=== PATIENT | female | born 1980 | race Caucasian/White ===

== ENCOUNTER 2016-07-13 20:21 | Inpatient (IN) ==
--- NOTE | 2016-07-13 17:02 | Emergency Department Note ---
Fernando Pool Brittany, am scribing for, and in the presence of, Sherry Tijerina DO 16: 37. IBreezy Debra, DO, personally performed the services described in this documentation, ascribed by Sandy King in my presence, and it is both accurate and complete 702 . Arrival - Arrival Chief Complaint: Abdominal / Flank Pain Stated Complaint: nausea and vomiting ED Nursing Triage Note: altaf from [facility] for dx of pancreatitis Dilaudid 2mg IV, 3.375mg Zosyn IV, fentanyl 50mcg and 1 liter of normal saline given BENEFITS SPECIALIST RECRUITER Mode of Arrival: Stretcher Limitations: No Limitations Source: Patient Time Seen by Provider: 07/13/16 16:20 - History of Present Illness HPI Narrative: This is a 35 y/o white female,who presents to the ED by EMS from [facility] for further evaluation of Pancreatitis. It is unclear exactly how when the abd pain started. Pt reports she is an occasional drinker. Per EMS pt was given Dilaudid 2 MG IV, Zosyn 3.375 IV, Fentanyl 50 MCG and 1 Liter of normal saline BENEFITS SPECIALIST RECRUITER. Pt is rocking back and forth and will not completely be still for the exam. After a few minutes pt has taken her IV out and is up walking around. PT has no other complaints/pain in the ED at this time. Pt has a PMHx of pancreatitis. Pt denies a surgical Hx. Pt denies a family medical Hx. Pt denies a social Hx. Onset (ago): unknown Consistency: constant Severity: moderate Date of Last Menstrual Period: 06/20/2016 Allergies/Adverse Reactions: Allergies Allergy/AdvReac Type Severity Reaction Status Date / Time No Known Allergies Allergy Unverified 07/13/16 16:08 Review of System - Review of System 12 point system: reviewed and no additional remarkable complaints except as stated - Review of System Gastrointestinal: Present: abdominal pain Medical,Surgical,& Family Hx - Medical History Gastrointestinal: History of: Pancreatitis Exam Vital Signs: Vital Signs Temperature 98.5 F 07/13/16 16:02 Pulse Rate 104 H 07/13/16 16:02 Respiratory Rate 18 07/13/16 16:02 Blood Pressure 122/83 07/13/16 16:02 O2 Sat by Pulse Oximetry 96 07/13/16 16:02 - General General appearance: alert, in no apparent distress - Head Head exam: Present: atraumatic, normocephalic, normal inspection - Eye Eye exam: Present: normal appearance, PERRL, EOMI - ENT ENT exam: Present: normal exam, normal oropharynx, mucous membranes moist - Neck Neck exam: Present: normal inspection, full ROM, trachea midline. Absent: tenderness, meningismus, lymphadenopathy, thyromegaly - Chest Chest inspection: Present: normal inspection, symmetric chest wall rise. Absent : tenderness, rash, abscess - Respiratory Respiratory exam: Present: normal lung sounds bilaterally. Absent: rales, respiratory distress, rhonchi, stridor, wheezes - Cardiovascular Cardiovascular exam: Present: regular rate, normal rhythm, normal heart sounds. Absent: murmur, rubs, gallop, clicks - Abdominal Exam Abdominal exam: Present: soft, tenderness (Diffuse tenderness but more so to the RUQ. ), normal bowel sounds. Absent: distention, guarding, rebound, rigidity, ascites, mass, bruit, pulsatile mass, hernia - Rectal Exam Rectal exam: Present: deferred - Extremities Exam Extremities exam: Present: normal inspection, full ROM, normal capillary refill. Absent: tenderness, pedal edema, joint swelling, calf tenderness - Back Exam Back exam: Present: normal inspection, full ROM. Absent: tenderness, muscle spasm, rashes - Neurological Exam Neurological exam: Present: alert, oriented X3, CN II-XII intact. Absent: normal gait, motor sensory deficit - Psychiatric Psychiatric exam: Present: normal affect, normal mood. Absent: depressed, agitated, anxious, flat affect, manic - Skin Skin exam: Present: warm, dry, intact, normal color. Absent: rash, cyanosis, diaphoresis, erythema, pallor, mottled Course Course Narrative: dr Darden will take pt to surgery. Results - Labs Lab Results: I have reviewed the patients labs Labs: Laboratory Tests 07/13/16 16:37 Lipase 76.0 - Diagnostic Findings Procedure: CT Abdomen and Pelvis: report reviewed by me (Pneumoperitoneum, suggesting perforated viscus. Consider perofrated gastric ulcer, given the fact that the abdominal fluid is more so on the right upper quadrant, and there is no evidence of pnumoperitoneum in the lower abdomen. ) Disposition Clinical Impression: Perforated viscus Case discussed with: patient, patient's family Disposition: Still a Patient Condition: Guarded Time of Disposition: 19:03
--- NOTE | 2016-07-13 18:33 | CT Report ---
History: Generalized abdominal pain Date: 07/13/2016 Study: CT abdomen and pelvis without contrast Comparison exam: No previous available Critical test result: Verbal report given to Dr. Tijerina by telephone at 6:20 PM Technique: Spiral CT sections were obtained from the lung bases to the pubic symphysis without contrast. The CT exam was performed using one or more of the following dose reduction techniques: Automated exposure control, adjustment of the mA and/or kV according to patient size, or use of iterative reconstruction technique. CT abdomen: The partially visualized lung bases are generally clear. There is evidence of pneumoperitoneum, with a 4.5 cm pocket of air under the right hemidiaphragm anteriorly. There is a moderate amount of free fluid in the upper abdomen, more so perihepatic and right upper quadrant than left upper quadrant. There is prominent distention of the fluid-filled gallbladder. The liver, spleen, adrenal glands, bile ducts, and kidneys are grossly unremarkable in appearance. There is residual IV contrast within the genitourinary tract from a presumed outside earlier CT scan. There is no mckenzie bowel obstruction. There is no aortic aneurysm CT pelvis: There is a moderate amount of free fluid in the pelvis. A copper-T IUD is noted within the uterus. The bladder is moderately distended with IV contrast and is otherwise unremarkable. Impression: Pneumoperitoneum, suggesting perforated viscus. Consider perforated gastric ulcer, given the fact that the abdominal fluid is more so on the right upper quadrant, and there is no evidence of pneumoperitoneum in the lower abdomen. PROCEDURE INTERPRETED AT [facility] DEPARTMENT OF RADIOLOGY Final Report Signed by: Dr. Nell Robles
--- NOTE | 2016-07-13 19:25 | General Surg History&Physical ---
Assessment and Plan (1) Perforated viscus Status: Acute Assessment and plan: This patient has free air and peritonitis. I have recommended robotic assisted diagnostic laparoscopy with repair of perforated viscus but I have also discussed the possibility of laparotomy with the patient and her mother as well as an ostomy. She appears well resuscitated and has received several liters of fluid and Zosyn. We will get a type and screen and take her immediately to the operating room. She did have evidence of urinary tract infection as well on a urinalysis from the outside hospital so we will get a repeat urine and treat this. I have discussed the risks, benefits, and alternatives of the operation with the patient and her mother, and the expected outcomes have been reviewed. They would like to proceed with the operation. Current Visit: Yes History of Present Illness Chief complaint: Abdominal pain History of present illness: Ms. Batista is a 35 year old female with a history of drug use and recent methamphetamine use who presents to the ER with a 3 week history of worsening upper abdominal pain that acutely worsened today. She went to an outside hospital ER and had a CT scan that showed a small amount of pneumoperitoneum. She had a leukocytosis of 15,000 and her urine drug screen showed methamphetamines and marijuana. She was transferred to [place] for management. She has never had any abdominal surgery. She says she has had a EGD in the past that showed some stress ulcers in her stomach that is what she was told. She has been taking a lot of ibuprofen recently. She does smoke tobacco and drink alcohol as well. Allergies Allergy/AdvReac Type Severity Reaction Status Date / Time No Known Allergies Allergy Unverified 07/13/16 16:08 Medical,Surgical,& Family Hx - Medical History Gastrointestinal: History of: Pancreatitis Exam - Constitutional Vitals: Period Temp Pulse Resp BP Sys/Mercado Pulse Ox Last 24 Hr 98.5 F-98.5 F 104-110 18-20 97-122/61-83 96 General appearance: normal weight, no acute distress - Head Head exam: Present: normal inspection, normocephalic - Eye Eye exam: Present: EOMI. Absent: scleral icterus Pupils: Present: CARO - ENT ENT exam: Present: normal exam Mouth exam: Present: normal external inspection, normal voice - Neck Neck exam: Present: normal inspection, trachea midline - Respiratory Respiratory exam: Present: clear to auscultation bilaterally. Absent: accessory muscle use, chest wall tenderness - Cardiovascular Cardiovascular exam: Present: tachycardia. Absent: irregular rhythm, systolic murmur - GI/Abdominal GI/Abdominal exam: Present: guarding, hypoactive bowel sounds, tenderness, rebound, soft. Absent: distended - Extremities Exam Extremities exam: Present: normal inspection, normal capillary refill - Back Exam Back exam: Present: normal inspection - Neurological Exam Neurological exam: Present: alert, oriented X3 Speech: Present: normal - Skin Skin exam: Present: normal color, warm - Constitutional Constitutional: Present: as per HPI - EENT Nose, mouth and throat: Present: as per HPI - Cardiovascular Cardiovascular: Present: as per HPI - Respiratory Respiratory: Present: as per HPI - Gastrointestinal Gastrointestinal: Present: as per HPI - Genitourinary Genitourinary: Present: as per HPI - Musculoskeletal Musculoskeletal: Present: as per HPI - Neurological Neurological: Present: as per HPI - Endocrine Endocrine: Present: as per HPI Hematologic/Lymphatic: Present: as per HPI Results - Diagnostic Findings Procedure: CT Abdomen and Pelvis: image reviewed by me, report reviewed by me ( Pneumoperitoneum)
[2016-07-13] MEDS: LACTATED RINGERS 1,000 ML IV SCH ×3 (20:09→22:59)
[~2016-07-13 20:21] MED LIST: HYDROmorphone 2 MG/1 ML VIAL IV STA; HYDROmorphone 2 MG/1 ML VIAL ONE; MORPHINE 2 MG/1 ML SYRINGE IV STA; MORPHINE 2 MG/1 ML SYRINGE ONE; ONDANSETRON 4 MG/2 ML VIAL IM STA; ONDANSETRON 4 MG/2 ML VIAL IV STA; ONDANSETRON 4 MG/2 ML VIAL ONE; SODIUM CHLORIDE 0.9% 1,000 ML IV STA; cefOXitin 1,000 MG in SODIUM CHLORIDE 0.9% 100 ML IV ONE
[2016-07-13] MEDS ORDERED: TISSUE ADHESIVE 1 EACH APPLICATOR TOP ONE (20:39)
--- NOTE | 2016-07-13 21:32 | Operative Note ---
Date of procedure: 07/13/16 Pre-op diagnosis: Free air with peritonitis Post-op diagnosis: other (Gastric perforation) Procedure: Preoperative diagnoses Free air with peritonitis Postoperative diagnosis Perforated gastric ulcer Procedures performed 1. Robotic assisted diagnostic laparoscopy 2. Robotic assisted laparoscopic repair of gastric ulcer perforation with falciform pedicle patch Findings There is a large amount of succus in the abdomen and some exudative fluid adhesions. All this was suction irrigated until the effluent was clear. There was a 1 cm hole in the stomach. This was repaired primarily with 2-0 PDS sutures. A falciform pedicle was then mobilized and placed over the repair with Lembert 2-0 silk sutures. A drain was placed over the repair and exited through 1 of the trocar sites. Complications None apparent Specimen None Anesthesia GETA Blood loss 10 mL Indications Free air with peritonitis Description of procedure The patient was taken to the operating room and transferred to the operating table in the supine position. Pressure points were padded and SCDs were placed lower extremities. General endotracheal anesthesia was administered. A Christie catheter was placed with clear urine output. The abdomen was prepped chlorhexidine and draped sterilely. Preoperative antibiotics were administered and timeout was performed. An NG tube was placed by anesthesia and placed on low suction with 300 cc of gastric contents. An 8 mm skin incision was made with an 11 blade scalpel. A penetrating towel clip was used to grasp the umbilical stalk. A Veress needle was used to enter the peritoneal cavity confirmed by double click technique. Aspiration was negative. Saline drop test confirmed intraperitoneal location. The initial insufflation pressure was 2 mmHg. The abdomen was insufflated on high flow insufflation to 15 mmHg. The Veress needle was removed and an 8 mm robotic trochars placed. Diagnostic laparoscopy was performed. There is no evidence of Veress needle or trocar injury. There was peritonitis throughout the abdomen and a large amount of exudative fluid as well as succus throughout the upper quadrants of both sides of the abdomen. This appeared most consistent with a gastric perforation. Under direct visualization, 2 additional 8 mm trochars were placed in the upper abdomen bilaterally. The suction inspector hairspring was then used to separate the left lobe of the liver from the stomach and a 1 cm full-thickness gastric perforation was seen. There is no evidence of malignancy. An additional assistant terminal manager trocar 12 mm in size was placed in the left lateral abdominal wall. The robot was then docked. The defect in the stomach was closed with a primary closure using 2-0 PDS sutures. The falciform ligament was then mobilized with electrocautery and a pedicle was created to have good blood supply. 2-0 silk sutures were then used with a Lembert type suture placed on both sides of the primary closure and these were then sewn down over the falciform pedicle which was placed underneath a Lembert sutures. This served as a buttress over the repair. It was secured in place with a 2-0 silk sutures. The abdomen was again suction irrigated until the effluent was clear and the robot was undocked. A #10 MEGHAN drain was placed over the repair and exited through 1 of the robotic trocar sites. It was sewn in with a 3-0 nylon suture. The MEGHAN drain was hooked up to bulb suction and the CO2 was released from the abdomen and the trochars were removed. The patient was awakened from anesthesia after Christie catheter was removed. The skin incisions were closed with 4-0 Monocryl and sterile skin glue. The patient was awakened from anesthesia and transferred to recovery. Postoperative plan Continue NG tube to low intermittent wall suction Monitor MEGHAN drain output N.p.o. H. pylori treatment with twice daily PPI Implants: #10 MEGHAN drain Anesthesia: WONA Surgeon / Physician: Guillermo Darden Estimated blood loss: minimal Specimens: none sent Condition: stable Disposition: PACU
[2016-07-13] MEDS ORDERED: ONDANSETRON 4 MG/2 ML VIAL IV PRN ×2 (21:38→22:25)
[2016-07-13] MEDS ORDERED: ONDANSETRON 4 MG/2 ML VIAL ONE ×2 (21:48→21:51)
[2016-07-13] MEDS ORDERED: HYDROmorphone 2 MG/1 ML VIAL ONE (21:48)
[2016-07-13] MEDS: HYDROmorphone 2 MG/1 ML VIAL IV PRN ×2 (21:50→21:55)
[2016-07-13] MEDS ORDERED: PROPOFOL 200 MG/20 ML VIAL IV ONE (21:50)
[2016-07-13] MEDS ORDERED: ACETAMINOPHEN 1,000 MG/100 ML VIAL IV ONE (21:51)
[2016-07-13] MEDS ORDERED: SEVOFLURANE 1 UNIT/15 MINUTE INH ONE (21:51)
[2016-07-13] MEDS ORDERED: KETOROLAC 30 MG/1 ML VIAL ONE (21:51)
[2016-07-13] MEDS ORDERED: GLYCOPYRROLATE 0.4 MG/2 ML VIAL ONE (21:51)
[2016-07-13] MEDS ORDERED: MIDAZOLAM 2 MG/2 ML VIAL ONE (21:51)
[2016-07-13] MEDS ORDERED: NEOSTIGMINE 10 MG/10 ML VIAL ONE (21:51)
[2016-07-13] MEDS ORDERED: LACTATED RINGERS 1,000 ML IV ONE (21:52)
[2016-07-13] MEDS ORDERED: ROCURONIUM 100 MG/10 ML VIAL IV ONE (21:52)
--- NOTE | 2016-07-13 21:59 | Anesthesia Post-Op ---
Anesthesia Post OP - Post Ansesthetic Evaluation Patient seen in post op: Yes Resp: within normal limits CV: within normal limits Mental: within normal limits Temp: within normal limits [id number]-Pt-[id number]: within normal limits Nausea and Vomiting: within normal limits Pain: within normal limits
[2016-07-13] MEDS ORDERED: PROMETHAZINE 25 MG/1 ML VIAL IM PRN (22:25)
[2016-07-13] MEDS ORDERED: NALOXONE 0.4 MG/ML VIAL IV PRN (22:25)
--- NOTE | 2016-07-13 23:10 | XRay Report ---
History: Postop abdominal surgery. Nasogastric tube placement Date: 07/13/2016 at 10:42 PM Study: Chest x-ray AP portable Comparison exam: No previous The nasogastric tube is positioned with its tip overlying the distal stomach body level. Surgical drain overlies the upper abdomen. The lungs are generally clear. There is no gross pleural effusion. Osseous structures are generally unremarkable. Impression: The nasogastric tube is well positioned. Surgical drain over the right upper abdomen PROCEDURE INTERPRETED AT [facility] DEPARTMENT OF RADIOLOGY Final Report Signed by: Dr. Nell Robles
[2016-07-13] MEDS: HYDROmorphone PCA 30 MG/30 ML SYRINGE IV SCH (23:13)
[2016-07-13] MEDS: PANTOPRAZOLE 40 MG VIAL IV SCH (23:20)
[2016-07-13] MEDS: PIPERACILLIN/TAZOBACTAM 3,375 MG in SODIUM CHLORIDE 0.9% 100 ML IV SCH (23:51)
[2016-07-14 04:31] LABS: Basophils % 0.1 % (0.0-0.8); Eosinophils % 0.1 % (0.00-10.9); Hematocrit 31.7 VOL% (35.7-47.0); Hemoglobin 10.6 GM/DL (12.0-16.0); Immature Granulocytes % 0.4 %; Immature Granulocytes Absolute 0.09 #; Lymphocytes # 1.2 10*3/uL (1.4-4.0); Lymphocytes % 5.8 % (21.3-54.2); Mean Corpuscular HGB Conc 33.4 GM/DL (32-36); Mean Corpuscular Hemoglobin 31 PG (27-34); Mean Corpuscular Volume 91.4 FL (87-102); Mean Platelet Volume 9.9 FL (9.6-12.0); Monocytes # 0.8 10*3/uL (0.11-0.8); Monocytes % 4.2 % (1.7-12.7); Neutrophils # 18.1 10*3/uL (1.4-7.4); Neutrophils % 89.4 % (38.7-73.9); Platelet Count 296 T/CUMM (130-400); Red Blood Count 3.47 MC/CUMM (3.8-5.5); Red Cell Distribution Width 12.4 % (9.3-17.3); White Blood Count 20.2 T/CUMM (4-12)
[2016-07-14 04:55] LABS: Band Neutrophils 8 % (0-10); Lymphocytes 5 % (20-55); Platelet Estimate Adequate; Segmented Neutrophils 84 % (50-85); Total Cells Counted 100
[2016-07-14 04:56] LABS: Hypochromasia 1+; Ovalocytes Slight
[2016-07-14 05:01] LABS: Osmolality,Calculated 277.3 MOS/KG (273-304); Potassium 4.1 MMOL/L (3.5-5.1)
[2016-07-14] MEDS: LACTATED RINGERS 1,000 ML IV SCH ×2 (07:09→15:51)
[2016-07-14] MEDS: VANCOMYCIN INJ 1,000 MG in SODIUM CHLORIDE 0.9% 250 ML IV SCH ×2 (08:28→17:41)
--- NOTE | 2016-07-14 10:04 | Event Note ---
General Surgery Progress Note Chief complaint This patient is a 35-year-old woman with a history of methamphetamine use who was admitted to the hospital with a perforated gastric ulcer treated with robotic assisted laparoscopic primary repair of gastric perforation with falciform pedicle flap on 07/14/2013 Interval history The patient had a good night last night. She has fair amount of output from her MEGHAN drain and NG tube but her pain is much better today. Her urine output is adequate. Vital signs have stabilized. White blood cell count did go up to 20,000. She is on a twice daily IV PPI and vancomycin and Zosyn. Physical exam Afebrile with normal vital signs Abdominal exam is benign with expected postoperative tenderness. MEGHAN drain still has some yellow colored fluid coming out of it but the output is decreased. Incisions are clean and dry. Labs Reviewed, as above Imaging Chest x-ray shows good placement of NG tube Assessment and plan Continue vancomycin and Zosyn Repeat labs tomorrow Continue NG tube to low intermittent wall suction and MEGHAN drain. The patient will be given ice chips and sips of water for comfort Start ambulating in the hallway Continue SCDs and Lovenox for DVT chemoprophylaxis
[2016-07-14] MEDS: PANTOPRAZOLE 40 MG VIAL IV SCH ×2 (11:40→19:59)
[2016-07-14] MEDS ORDERED: diphenhydrAMINE 50 MG/1 ML VIAL IV PRN (12:46)
[2016-07-14] MEDS: PIPERACILLIN/TAZOBACTAM 3,375 MG in SODIUM CHLORIDE 0.9% 100 ML IV SCH ×3 (13:36→19:59)
[2016-07-14] MEDS: ENOXAPARIN 40 MG/0.4 ML SYRINGE SUBCUT SCH (17:41)
[2016-07-15] MEDS: HYDROmorphone PCA 30 MG/30 ML SYRINGE IV SCH (00:34)
[2016-07-15] MEDS: LACTATED RINGERS 1,000 ML IV SCH ×4 (00:34→22:18)
[2016-07-15] MEDS: VANCOMYCIN INJ 1,000 MG in SODIUM CHLORIDE 0.9% 250 ML IV SCH (00:44)
[2016-07-15] MEDS: PIPERACILLIN/TAZOBACTAM 3,375 MG in SODIUM CHLORIDE 0.9% 100 ML IV SCH (03:29)
[2016-07-15 04:17] LABS: Basophils % 0.2 % (0.0-0.8); Eosinophils # 0.4 10*3/uL (0.0-0.87); Eosinophils % 1.8 % (0.00-10.9); Hematocrit 34.7 VOL% (35.7-47.0); Hemoglobin 11.3 GM/DL (12.0-16.0); Immature Granulocytes % 0.9 %; Immature Granulocytes Absolute 0.18 #; Lymphocytes # 1.3 10*3/uL (1.4-4.0); Lymphocytes % 6.3 % (21.3-54.2); Mean Corpuscular HGB Conc 32.6 GM/DL (32-36); Mean Corpuscular Hemoglobin 31 PG (27-34); Mean Corpuscular Volume 93.8 FL (87-102); Mean Platelet Volume 9.9 FL (9.6-12.0); Monocytes # 1.4 10*3/uL (0.11-0.8); Monocytes % 6.8 % (1.7-12.7); Neutrophils # 16.8 10*3/uL (1.4-7.4); Platelet Count 269 T/CUMM (130-400); Red Cell Distribution Width 12.5 % (9.3-17.3)
[2016-07-15 04:35] LABS: Calcium 8.6 MG/DL (8.5-10.1); Osmolality,Calculated 277.4 MOS/KG (273-304); Potassium 4.6 MMOL/L (3.5-5.1)
[2016-07-15 04:47] LABS: Hypochromasia Slight; Ovalocytes Slight; Platelet Estimate Adequate
--- NOTE | 2016-07-15 07:02 | Physician Query Form ---
CLICK EDIT DOCUMENT TO SELECT QUERY ANSWER --> OK --> SIGN Kirsten Baum RN, CCDS Certified Clinical Loader W) [phone] (f) [phone] [email or web address] PROVIDERS: Make your selection(s) from the choices in EACH section by typing an "x" and enter comments in the comment section. Please use your independent medical judgment in providing your response. This request does not imply that any particular answer is desired or expected. CLINICAL INDICATORS: (Providers should not edit this section) The medical record indicates that the patient was admitted with a perforated gastric ulcer. In your clinical opinion can you please clarify the acuity of the ulcer? Clarify which of the following accurately represents the acuity of the above diagnosis. (x) Acute ( ) Acute on chronic ( ) Chronic stable condition ( ) Remission ( ) Other, please specify: ( ) Clinically unable to determine COMMENTS: Use of terms such as suspected, likely, or probable (associated with a specific diagnosis that is being evaluated, monitored, or treated as if it exists) are acceptable and can be restated in the discharge summary if not ruled out. [facility]
--- NOTE | 2016-07-15 07:56 | Event Note ---
General Surgery Progress Note Chief complaint This patient is a 35-year-old woman with a history of methamphetamine use who was admitted to the hospital with a perforated gastric ulcer treated with robotic assisted laparoscopic primary repair of gastric perforation with falciform pedicle flap on 07/14/2013 Interval history The patient had a good night last night. She is stable today and her labs are fairly stable with a white blood cell count still 20,000. Hemoglobin stable. Creatinine is normal. Patient feels hungry. Physical exam Afebrile with normal vital signs Abdominal exam is benign with expected postoperative tenderness. MEGHAN drain is serous Labs Reviewed, as above Imaging None new Assessment and plan Discontinue IV antibiotics Start triple therapy with twice daily PPI, amoxicillin, clarithromycin Continue MEGHAN drain Allow sips of water and ice chips today and medications We will start liquid diet tomorrow and possible discharge home tomorrow Repeat labs tomorrow
[2016-07-15] MEDS ORDERED: HYDROmorphone 2 MG/1 ML VIAL IV PRN (10:15)
[2016-07-15] MEDS: CLARITHROMYCIN 500 MG TABLET PO SCH ×2 (14:45→21:58)
[2016-07-15] MEDS: AMOXICILLIN 500 MG CAPSULE PO SCH ×2 (14:45→21:58)
[2016-07-15] MEDS: PANTOPRAZOLE 40 MG TABLET PO SCH ×2 (14:46→21:58)
[2016-07-15] MEDS ORDERED: SODIUM CHLORIDE 0.9% 500 ML IV ONE (15:27)
[2016-07-15] MEDS ORDERED: DEXTROSE 5% NACL 0.45% 1,000 ML IV SCH (15:30)
[2016-07-15] MEDS: ENOXAPARIN 40 MG/0.4 ML SYRINGE SUBCUT SCH (20:12)
[2016-07-16 04:36] LABS: Basophils % 0.2 % (0.0-0.8); Eosinophils # 0.4 10*3/uL (0.0-0.87); Eosinophils % 3.3 % (0.00-10.9); Hemoglobin 10.2 GM/DL (12.0-16.0); Immature Granulocytes % 0.7 %; Immature Granulocytes Absolute 0.08 #; Lymphocytes # 0.9 10*3/uL (1.4-4.0); Lymphocytes % 7.3 % (21.3-54.2); Mean Corpuscular HGB Conc 32.9 GM/DL (32-36); Mean Corpuscular Hemoglobin 30 PG (27-34); Mean Corpuscular Volume 91.4 FL (87-102); Mean Platelet Volume 10.1 FL (9.6-12.0); Monocytes # 0.9 10*3/uL (0.11-0.8); Monocytes % 7.5 % (1.7-12.7); Neutrophils # 9.7 10*3/uL (1.4-7.4); Platelet Count 234 T/CUMM (130-400); Red Blood Count 3.39 MC/CUMM (3.8-5.5); Red Cell Distribution Width 12.2 % (9.3-17.3)
[2016-07-16 05:19] LABS: Magnesium 1.7 MG/DL (1.8-2.4); Osmolality,Calculated 273.5 MOS/KG (273-304); Potassium 3.4 MMOL/L (3.5-5.1)
[2016-07-16] MEDS: LACTATED RINGERS 1,000 ML IV SCH ×2 (06:00→18:47)
--- NOTE | 2016-07-16 08:15 | Event Note ---
General Surgery Progress Note Chief complaint This patient is a 35-year-old woman with a history of methamphetamine use who was admitted to the hospital with a perforated gastric ulcer treated with robotic assisted laparoscopic primary repair of gastric perforation with falciform pedicle flap on 07/14/2013 Interval history No events overnight. The patient is doing well. Her vital signs have normalized. She can get pain medication IV at times because of the low blood pressure. Her white blood cell count has normalized. Her NG tube is out and she is not having any nausea. MEGHAN drain output is minimal and looks more clear. Physical exam Afebrile with normal vital signs Abdominal exam is benign with expected postoperative tenderness. MEGHAN drain is serous Labs Reviewed, as above Imaging None new Assessment and plan Continue H. pylori treatment Gastrografin upper GI to evaluate repair of gastric perforation We will advance her diet if the upper GI looks okay and send her home today with the drain and triple therapy
[2016-07-16] MEDS: CLARITHROMYCIN 500 MG TABLET PO SCH (10:49)
[2016-07-16] MEDS: AMOXICILLIN 500 MG CAPSULE PO SCH (10:49)
[2016-07-16] MEDS: PANTOPRAZOLE 40 MG TABLET PO SCH (10:49)
--- NOTE | 2016-07-16 13:09 | Fluoroscopy Report ---
FL upper GI series Indication: Recent repair of perforated gastric ulcer. Comparison: None. Technique: Multiple fluoroscopic images of the esophagus, stomach, and proximal small bowel were obtained during administration of both thick and thin barium. Total fluoroscopy time was 1 minute 53 seconds.. Findings: Fluoroscopic images of the esophagus are unremarkable. The stomach fills normally. A surgical drain is present. Along the superior margin of the distal gastric antrum, there are small protrusions of contrast without extravasation there are favored to reflect the site of recent surgical repair and/or ulcer. The duodenum is unremarkable. Impression: 1. No evidence of extravasation, leak, or perforation. Findings were discussed with Dr. Darden at approximately 1043 hours, date of exam. 07/16/2016 1:05 PM PROCEDURE INTERPRETED AT [facility] [place] DEPARTMENT OF RADIOLOGY Final Report Signed by: Dr. Ibrahima Baum
--- NOTE | 2016-07-16 13:26 | Discharge Summary ---
Hospital Course - Hospital Course Hospital Course: The pt is 35 y/o female with nicotine and h/o drug abuse including amphetamines who presented with perforated gastric ulcer and taken emergently to OR for robotic diagnostic laparoscopy with repair of ulcer. Initially, leukocytosis present which resolved; pt treated with IV abx and then transitioned to triple therapy for presumptive H. pylori treatment. P/o she progressed well and ultimately was tolerating mobilization, soft diet, voiding, and had BM prior to discharge with adequate pain management on oral analgesics. UGI series on day of discharge confirmed no residual leak associated with perforation. The patient was discharged home in good condition with education as below. Diagnosis - Discharge Diagnosis (1) Perforated gastric ulcer Status: Acute (2) Drug abuse, amphetamine type Status: Acute (3) Nicotine dependence Status: Acute Specialty Discharge - Follow Up or Referrals Follow up with: Guillermo Darden MD [Physician] - 07/23/16 9:30 am Discharge Plan - Discharge Data Disposition: Disch To Home/Self Care Condition at Discharge: Stable Discharge Diet: other (Soft diet until f/u Dr. Darden. Avoid foods with sharp edges i.e. potato chips, pizza crust, etc.) Activity: no lifting (>10lb) Hygiene: may shower, keep area(s) dry Driving: other (No driving while taking narcotics) Contact your physician if you experience:: fever over 101, Difficulty voiding, Redness or swelling, Nausea/Vomiting, Shortness of breath, Bleeding, pain uncontrolled by pain medications Wound / Dressing Care Instructions: Keep incisions clean, dry and covered. Change drain dressing daily after showering. Do not submerge or rub wound. Empty MEGHAN drain daily and maintain journal of output. Bring journal to appointment with Dr. Darden. - Discharge Medications New Amoxicillin Cap/Tab 500 mg PO Q12HR #28 capsule Clarithromycin [Biaxin] 500 mg PO Q12HR #28 tablet HYDROcodone/ACETAMIN 10-325 [Alpine 10-325] 1 tablet PO Q4H PRN #30 PRN Reason: Pain Moderate To Severe (4-10) Pantoprazole Tab [Protonix Tab] 40 mg PO BID #60 tablet - Follow Up or Referral Follow Up: Guillermo Darden MD [Physician] - 07/23/16 9:30 am - Forms/Instructions Instructions: Exploratory Laparoscopy (NAHUM), Mikey Merritt Drain Discharge Instructions, How to Stop Smoking (DC), Soft Diet (DC), Diet for Ulcers and Gastritis (GEN) Exam - Constitutional Vitals: Period Temp Pulse Resp BP Sys/Mercado Pulse Ox Last 24 Hr 98.2 F-99.5 F 67-89 15-20 80-108/42-58 96-100 General appearance: no acute distress - Head Head exam: Present: normal inspection, normocephalic, atraumatic - Eye Eye exam: Absent: conjunctival injection, scleral icterus - Respiratory Respiratory exam: Present: clear to auscultation bilaterally - Cardiovascular Cardiovascular exam: Present: regular rate and rhythm - GI/Abdominal GI/Abdominal exam: Present: normal bowel sounds, tenderness (appropriate p/o tenderness), soft, other (Surgical incisions c/d/i. Drain site c/d/i without erythema. MEGHAN with serous drainage. ). Absent: distended - Extremities Exam Extremities exam: Absent: calf tenderness, edema - Neurological Exam Neurological exam: Present: alert, oriented X3 - Psychiatric Psychiatric exam: Present: normal affect, normal mood - Skin Skin exam: Present: normal color, warm Discharge Results Procedures and tests throughout hospitalization: 1. Robtic assisted repair of perforated gastric ulcer 2. Gastrograffin UGI confirmed no p/o leakage Labs on day of discharge: Labs from last 24 hours 07/16/16 07/16/16 03:43 03:43 WBC 12.0 D RBC 3.39 L Hgb 10.2 L Hct 31.0 L MCV 91.4 MCH 30 MCHC 32.9 RDW 12.2 Plt Count 234 MPV 10.1 Neut % (Auto) 81.0 H Lymph % (Auto) 7.3 L Upson % (Auto) 7.5 Eos % (Auto) 3.3 Baso % (Auto) 0.2 Neut # (Auto) 9.7 H Lymph # (Auto) 0.9 L Upson # (Auto) 0.9 H Eos # (Auto) 0.4 Baso # (Auto) 0.0 Immature Gran % 0.7 Nucleated RBC % 0.0 Immature Gran # 0.08 Nucleated RBCs # 0.00 Sodium 139 Potassium 3.4 L Chloride 105 Carbon Dioxide 25 Anion Gap 12.4 BUN 9 Creatinine 0.40 L GFR Calculation 132 BUN/Creatinine Ratio 22.00 H Glucose 70 L Calculated Osmolality 273.5 Calcium 8.0 L Magnesium 1.7 L - Imaging and Cardiology Procedure: Abdominal x-ray: image reviewed by me, report reviewed by me ( Gastrograffin UGI series), Chest x-ray: image reviewed by me, report reviewed by me, CT Abdomen and Pelvis: image reviewed by me, report reviewed by me DS: Provider Date of admission: 07/13/16 21:33 Attending physician on admission: Guillermo Darden MD Consults: 07/14/16 06:38 Consult to Pharmacy [CONS] Routine Reason for Pharmacy Consult: Dose/Manage Vancomycin Discharging clinician: Melody Keene PA-C
[2016-07-16 16:12] VITALS: BP 100/55
== END 2016-07-16 17:43 | disposition home or self-care (01) | DRG 326 ==
LOC: EDUNIT# → EDBD → N.ED 20:21 → N.3E 20:21 → N.SDSINP 20:24 → N.3E 23:19
PROVIDERS: ADMIT Surgery; ATTEND Surgery

== ENCOUNTER 2021-01-27 04:59 | Inpatient (IN) ==
[2021-01-27] MEDS ORDERED: BUTORPHANOL 2 MG/ML VIAL IV PRN (05:10)
[2021-01-27] MEDS ORDERED: ONDANSETRON 4 MG/2 ML VIAL IV PRN (05:10)
[2021-01-27] MEDS ORDERED: MEPERIDINE 50 MG/1 ML VIAL IV PRN (05:10)
[2021-01-27] MEDS: LACTATED RINGERS 1,000 ML IV SCH ×2 (05:34→09:19)
[2021-01-27 06:00] LABS: Basophils # 0.1 10*3/uL (0.0-0.2); Basophils % 0.4 % (0.0-0.8); Eosinophils # 0.4 10*3/uL (0.0-0.87); Eosinophils % 2.7 % (0.00-10.9); Hematocrit 38.3 VOL% (35.7-47.0); Hemoglobin 12.8 GM/DL (12.0-16.0); Immature Granulocytes % 0.8 %; Lymphocytes # 2.3 10*3/uL (1.4-4.0); Lymphocytes % 17.7 % (21.3-54.2); Mean Corpuscular HGB Conc 33.4 GM/DL (32-36); Mean Corpuscular Volume 89.9 FL (87-102); Mean Platelet Volume 11.2 FL (9.6-12.0); Monocytes % 6.3 % (1.7-12.7); Neutrophils % 72.1 % (38.7-73.9); Platelet Count 253 T/CUMM (130-400); Red Blood Count 4.26 MC/CUMM (3.8-5.5); Red Cell Distribution Width 12.6 % (9.3-17.3); White Blood Count 12.8 T/CUMM (4-12)
[2021-01-27 06:14] LABS: Alanine Aminotransferase 16 U/L (13-56); Albumin 2.7 G/DL (3.4-5.0); Alkaline Phosphatase 235 U/L (45-117); Aspartate Amino Transferase 17 U/L (0-37); Bilirubin,Total < 0.39 MG/DL (0.20-1.00); Blood Urea Nitrogen 11 MG/DL (7-18); Calcium 8.8 MG/DL (8.5-10.1); Carbon Dioxide 20 MMOL/L (21-32); Estimated Glom Filtration Rate 122 ML/MIN; Glucose 96 MG/DL (74-106); Osmolality,Calculated 268.1 MOS/KG (273-304); Potassium 3.8 MMOL/L (3.5-5.1); Sodium 135 MMOL/L (136-145); Total Protein 7.4 G/DL (6.4-8.2)
[2021-01-27] MEDS: OXYTOCIN/LR 20 UNIT/1,000 ML BAG IV SCH ×2 (06:26→14:24)
[2021-01-27] MEDS ORDERED: FAMOTIDINE 20 MG/2 ML VIAL IV ONE (08:54)
[2021-01-27] MEDS ORDERED: CITRIC ACID/SODIUM CITRATE 30 ML UDCUP PO ONE (08:54)
[2021-01-27] MEDS ORDERED: LACTATED RINGERS 1,000 ML IV ONE (08:54)
[2021-01-27] MEDS ORDERED: LACTATED RINGERS 250 ML IV PRN (08:56)
[2021-01-27] MEDS ORDERED: NALOXONE 0.4 MG/ML VIAL IV PRN (08:56)
[2021-01-27] MEDS ORDERED: diphenhydrAMINE 50 MG/1 ML VIAL IV PRN ×2 (08:56)
[2021-01-27] MEDS ORDERED: hydrOXYzine HCL 25 MG/1 ML VIAL IM PRN (08:56)
[2021-01-27] MEDS ORDERED: PROMETHAZINE 25 MG/1 ML VIAL IM ONE (08:56)
[2021-01-27] MEDS ORDERED: LACTATED RINGERS 1,000 ML IV SCH (09:00)
[2021-01-27] MEDS ORDERED: fentaNYL 2 MCG/ROPIV 0.2% EPID 100 ML EPIDURAL SCH (09:00)
[2021-01-27] MEDS: ePHEDrine 50 MG/ML VIAL IV PRN ×2 (10:30→11:57)
[2021-01-27 11:04] LABS: Bilirubin,Urine Negative (Negative); Blood, Urine Negative (Negative); Glucose,Urine (UA) Negative (Negative); Ketones,Urine Negative (Negative); Nitrite,Urine Negative (Negative); Protein,Urine Negative; RBC,Urine 1 /HPF (0-4); Squamous Epithelial Cell,Urine Occasional /HPF (0-10); Urine Appearance CLEAR (Clear); Urine Color Straw (Yellow); Urine Specific Gravity 1.005 (1.001-1.035); Urine Urobilinogen < 2.0 EU/DL (0.2-1.0)
[2021-01-27] MEDS ORDERED: miSOPROStoL 200 MCG TABLET ONE (11:34)
[2021-01-27] MEDS ORDERED: METHYLERGONOVINE 0.2 MG/1 ML AMP ONE (11:34)
[2021-01-27] MEDS ORDERED: OXYTOCIN/LR 20 UNIT/1,000 ML BAG IV ONE ×2 (11:34→15:56)
[2021-01-27] MEDS ORDERED: TRANEXAMIC ACID 1,000 MG/10 ML VIAL ONE (11:34)
[2021-01-27] MEDS ORDERED: CARBOPROST TROMETHAMINE 250 MCG/ML AMP IM ONE (11:35)
[2021-01-27 13:43] LABS: Cord Venous Blood HCO3 22.9 MMOL/L; Cord Venous Blood PCO2 40.9 MMHG; Cord Venous Blood PO2 36.1
[2021-01-27] MEDS ORDERED: RHO(D) IMMUNE GLOBULIN 300 MCG SYRINGE IM ONE (15:56)
[2021-01-27] MEDS ORDERED: HYDROCORTISONE 2.5% RECTAL CREAM 30 GM TUBE TOP PRN (15:56)
[2021-01-27] MEDS ORDERED: MEASLES/MUMPS/RUBELLA VACCINE 0.5 ML VIAL SUBCUT ONE (15:56)
[2021-01-27] MEDS ORDERED: oxyCODONE/ACETAMINOPHEN 5-325 MG TABLET PO PRN (15:56)
[2021-01-27] MEDS ORDERED: ACETAMINOPHEN 325 MG TABLET PO PRN (15:56)
[2021-01-27] MEDS ORDERED: BENZOCAINE 20%/MENTHOL 0.5% SPRAY 56 GM CAN TOP PRN (15:56)
[2021-01-27] MEDS ORDERED: WITCH HAZEL PADS 100/JAR TOP PRN (15:56)
[2021-01-27] MEDS ORDERED: BISACODYL 10 MG SUPP RECTAL PRN (15:56)
[2021-01-27] MEDS ORDERED: DIPH/TET/ACEL PERT BOOSTER VACCINE 0.5 ML VIAL IM ONE (15:56)
[2021-01-27] MEDS ORDERED: LANOLIN 50% CREAM 0.3 OZ TUBE TOP PRN (15:56)
[2021-01-27] MEDS: DOCUSATE SODIUM 100 MG CAPSULE PO SCH (20:57)
[2021-01-27] MEDS: IBUPROFEN 800 MG TABLET PO PRN (21:06)
[2021-01-27] MEDS: oxyCODONE/ACETAMINOPHEN 5-325 MG TABLET PO PRN (22:48)
[2021-01-28 05:22] LABS: Basophils # 0.1 10*3/uL (0.0-0.2); Basophils % 0.4 % (0.0-0.8); Eosinophils # 0.2 10*3/uL (0.0-0.87); Eosinophils % 1.6 % (0.00-10.9); Hematocrit 34.6 VOL% (35.7-47.0); Hemoglobin 11.5 GM/DL (12.0-16.0); Immature Granulocytes % 0.4 %; Immature Granulocytes Absolute 0.06 #; Lymphocytes # 2.7 10*3/uL (1.4-4.0); Lymphocytes % 19.3 % (21.3-54.2); Mean Corpuscular HGB Conc 33.2 GM/DL (32-36); Mean Corpuscular Volume 90.6 FL (87-102); Mean Platelet Volume 10.9 FL (9.6-12.0); Monocytes % 7.3 % (1.7-12.7); Platelet Count 229 T/CUMM (130-400); Red Blood Count 3.82 MC/CUMM (3.8-5.5)
[2021-01-28] MEDS: oxyCODONE/ACETAMINOPHEN 5-325 MG TABLET PO PRN ×3 (05:28→18:55)
[2021-01-28] MEDS: DOCUSATE SODIUM 100 MG CAPSULE PO SCH ×2 (09:26→22:08)
[2021-01-28] MEDS: IBUPROFEN 800 MG TABLET PO PRN ×2 (09:27→23:27)
[2021-01-29] MEDS: DOCUSATE SODIUM 100 MG CAPSULE PO SCH (08:11)
[2021-01-29] MEDS: oxyCODONE/ACETAMINOPHEN 5-325 MG TABLET PO PRN (08:12)
[2021-01-29] MEDS: IBUPROFEN 800 MG TABLET PO PRN (08:13)
[2021-01-29] MEDS ORDERED: DIPH/TET/ACEL PERT BOOSTER VACCINE 0.5 ML VIAL IM ONE (11:40)
[2021-01-29] MEDS ORDERED: INFLUENZA VIRUS VACCINE 0.5 ML SYRINGE IM ONE (12:05)
[2021-01-29 13:27] VITALS: BP 102/58
== END 2021-01-29 12:55 | disposition home or self-care (01) | DRG 560 ==
LOC: N.LD 04:59 → N.OB 16:10
PROVIDERS: ADMIT Obstetrics & Gynecology; ATTEND Obstetrics & Gynecology